=== PATIENT | female | born 1960 | race African-American/Black ===

== ENCOUNTER 2022-12-19 08:46 | Emergency (ER) | payer BC, OTHER ==
[~2022-12-19] VITALS: Ht 162.6 cm; Wt 104.0 kg
[2022-12-19 08:48] VITALS: BP 147/66
[2022-12-19] MEDS ORDERED: ACETAMINOPHEN 325MG TABLET PO ONE (09:30)
[2022-12-19 09:59] LABS: BASOPHILS % 0.7 % (0.0-2.0); EOSINOPHILS % 0.8 % (0.0-5.0); HEMATOCRIT. 41.2 % (36.0-48.0); HEMOGLOBIN. 13.4 g/dL (12.0-16.0); LYMPHOCYTES % 28.9 % (20.0-50.0); MEAN CORPUSCULAR HEMOGLOBIN 29.9 pg (28.0-32.0); MEAN CORPUSCULAR VOLUME 91.8 fL (81.0-99.0); MEAN PLATELET VOLUME 9.6 fl (7.4-10.4); NEUTROPHILS % 65.6 % (40.0-76.0); PLATELET 268 x1000/uL (130-400); RED BLOOD CELL COUNT 4.49 mill/uL (4.2-5.4); RED CELL DISTRIBUTION WIDTH 14.1 % (11.6-14.6)
[2022-12-19 10:06] LABS: CHLORIDE 107 mEq/L (98-107)
== END 2022-12-19 11:19 | disposition home or self-care (01) ==
LOC: ER 08:46
DX: M79.602 Pain in left arm (principal)
CPT/HCPCS: 36415; 71045; 80053; 84484; 85025; 93005; 99285

== ENCOUNTER 2024-12-05 10:15 | Emergency (ER) | payer OTHER ==
[~2024-12-05] VITALS: Ht 162.6 cm; Wt 109.0 kg
[2024-12-05 10:23] VITALS: TEMP 97.8; O2SAT 97
[2024-12-05] MEDS: PREDNISONE 20MG TABLET PO ONE (12:28)
[2024-12-05] MEDS: ALBUTEROL (0.083%) 2.5MG/3ML NEB HHN ONE ×2 (13:47→14:31)
[2024-12-05 13:48] VITALS: PULSE 96; RESP 24
[2024-12-05 14:31] VITALS: PULSE 92; RESP 22
[2024-12-05] MEDS ORDERED: P20 MT (15:10)
[2024-12-05 15:21] VITALS: BP 155/67; PULSE 94; RESP 18; O2SAT 98
== END 2024-12-05 15:22 | disposition home or self-care (01) ==
LOC: ER 10:15
DX: R50.9 Fever, unspecified (principal); R05.9 Cough, unspecified; R06.2 Wheezing; Z90.49 Acquired absence of other specified parts of digestive tract
CPT/HCPCS: 71045; 94640; 99284; J7512; Z7610